=== PATIENT | female | born 1955 | race American Indian/Alaskan Native ===

== ENCOUNTER 2017-08-19 21:32 | Observation (INO) | payer OTHER ==
[2017-08-19 22:05] LABS: BASO # 0.1 K/uL (0.0-0.2); BASO % 0.7 % (0.0-2.0); EOS # 0.1 K/uL (0.0-0.7); EOS % 0.9 % (0.0-4.0); HEMATOCRIT 40.6 % (34.0-47.0); LYMPH # 3.8 K/uL (1.0-4.3); LYMPH % 45.4 % (20.0-40.0); MEAN CELL VOLUME 84.1 fL (81.0-99.0); MEAN CORPUSCULAR HEMOGLOBIN 28.1 pg (27.0-31.0); MEAN CORPUSCULAR HGB CONC 33.4 g/dL (33.0-37.0); MEAN PLATELET VOLUME 8.7 fL (7.2-11.7); MONO # 0.7 K/uL (0.0-0.8); MONO % 7.8 % (0.0-10.0); NRBC % 0.1 % (0.0-2.0); RED CELL DISTRIBUTION WIDTH 13.3 % (11.5-14.5); WHITE BLOOD COUNT 8.4 K/uL (4.8-10.8)
[2017-08-19 22:18] LABS: ALB/GLOB RATIO 1.5 (1.0-2.1); ALKALINE PHOSPHATASE 157 U/L (38-126); ALT/SGPT 33 U/L (9-52); AST/SGOT 22 U/L (14-36); BILIRUBIN,TOTAL 2.6 mg/dL (0.2-1.3); BLOOD UREA NITROGEN 13 mg/dL (7-17); CALCIUM 9.1 mg/dl (8.6-10.4); CARBON DIOXIDE 24 mmol/L (22-30); CHLORIDE 96 mmol/L (98-107); GFR AFRICAN-AMERICAN > 60; GLUCOSE,RANDOM 231 mg/dL (65-105); POTASSIUM 3.1 mmol/L (3.6-5.2); SODIUM 132 mmol/L (132-148)
[2017-08-19] MEDS ORDERED: Magnesium Sulfate 1 gm in D5W 1 GM/100 ML BAG IVPB ONE ×2 (23:01→23:32)
[2017-08-19] MEDS: Magnesium Sulfate 1 gm in D5W 1 GM/100 ML BAG IVPB SCH ×2 (23:05→23:35)
--- NOTE | 2017-08-19 23:13 | C.PDOC ---
History Of Present Illness 62 year old female presents to the ER with a complaint of abdominal pain, nausea , and vomiting that began earlier today. Denies fever or chills. Patient was seen and discharged from [facility] on 08/15/17 with abdominal pain, she had a CT abd/ pel that showed diverticulosis of the sigmoid colon without evidence of -itis and a US of the RUQ that showed hepatic steatosis. Patient returned to [facility] on 08/17/17 with nausea, vomiting, and diarrhea, she was admitted to their observation unit for 24 hours where she received zofran, morphine, insulin, and was discharged with improvement. Patient states she feels worse now and now has bilious vomiting. Patient has a Hx of HTN, diabetes, high cholesterol, and had an upper endoscopy years ago that was negative. She has a surgical Hx of hysterectomy and no known allergies. Chief Complaint (Nursing): GI Problem History Per: Patient History/Exam Limitations: no limitations Onset/Duration Of Symptoms: Hrs Current Symptoms Are (Timing): Still Present Severity: Moderate Pain Scale Rating Of: 5 Location Of Pain/Discomfort: Diffuse Radiation Of Pain To:: None Quality Of Discomfort: Unable To Describe Associated Symptoms: Nausea, Vomiting. denies: Fever, Chills, Diarrhea, Loss Of Appetite, Back Pain, Chest Pain Exacerbating Factors: None. denies: Cough Alleviating Factors: None Recent travel outside of the [place]: No Abnormal Vaginal Bleeding: No Past Medical History Reviewed: Historical Data, Nursing Documentation, Vital Signs Vital Signs: Last Vital Signs Temp 98.5 F 08/20/17 03:10 Pulse 70 08/20/17 03:10 Resp 20 08/20/17 03:10 BP 165/92 H 08/20/17 03:10 Pulse Ox 95 08/20/17 03:10 - Medical History PMH: HTN, Hypercholesterolemia, Pancreatitis Family History: States: Unknown Family Hx - Social History Hx Alcohol Use: No Hx Substance Use: No Review Of Systems Constitutional: Negative for: Fever, Chills Eyes: Negative for: Pain ENT: Negative for: Ear Pain Cardiovascular: Negative for: Chest Pain, Palpitations, Paroxysmal Noc. Dyspnea Respiratory: Negative for: Cough, Shortness of Breath, SOB with Excertion, Pleuritic Pain Gastrointestinal: Positive for: Nausea, Vomiting, Abdominal Pain Genitourinary: Negative for: Dysuria, Hematuria Musculoskeletal: Negative for: Neck Pain Neurological: Negative for: Weakness Psych: Negative for: Anxiety Physical Exam - Physical Exam Appears: Non-toxic, In Acute Distress Skin: Normal Color, Warm, Dry Head: Atraumatic, Normacephalic Eye(s): bilateral: Normal Inspection Oral Mucosa: Moist Tongue: Normal Appearing Lips: Normal Appearing Teeth: Normal Dentition Gingiva: Normal Appearing Neck: Normal, Supple Chest: Symmetrical, No Tenderness Cardiovascular: Rhythm Regular Respiratory: Normal Breath Sounds, No Rales, No Rhonchi, No Wheezing Gastrointestinal/Abdominal: Normal Exam, Soft, Tenderness (Mild), No Organomegaly, No Distention, No Guarding, No Rebound Back: Normal Inspection Extremity: Normal ROM Neurological/Psych: Oriented x3, Normal Speech ED Course And Treatment - Laboratory Results Result Diagrams: 08/19/17 22:00 08/19/17 22:00 ECG: Interpreted By Me, Viewed By Me ECG Rhythm: Sinus Rhythm ECG Interpretation: Normal Interpretation Of ECG: MA: 128, QRS: 74, QT: 394, QTc: 422. No ischemic changes. Rate From EC O2 Sat by Pulse Oximetry: 97 (Room air) Pulse Ox Interpretation: Normal Medical Decision Making Medical Decision Making: Plan: * EKG * UDS * CXR * Upreg * UA * Pepcid * Trop I * Lipase * Toradol * Zofran * Abdominal X-ray CBC within normal limits, potassium low at 3.1, will treat with magnesium sulfate 2 grams and potassium chloride po. BNP 246, trop I negative. On reevaluation, patient is still actively vomiting and complaining of pain, will give 4 more of zofran, protonix, and GI cocktail. Patient reports improvement of pain after morphine. pt received multiple doses of antiemetics with only intermittent relief. Case discussed with Dr. Lewis, who is covering for Dr. Schneider, agrees to accept patient for admission. Disposition Doctor Will See Patient In The: Hospital Counseled Patient/Family Regarding: Diagnosis - Disposition Disposition: HOSPITALIZED Disposition Time: 03:00 Condition: FAIR - Clinical Impression Clinical Impression: Nausea & vomiting - Scribe Statement The provider has reviewed the documentation as recorded by the Scriblidia Arboleda All medical record entries made by the Scribe were at my direction and personally dictated by me. I have reviewed the chart and agree that the record accurately reflects my personal performance of the history, physical exam, medical decision making, and the department course for this patient. I have also personally directed, reviewed, and agree with the discharge instructions and disposition.
[2017-08-19] MEDS ORDERED: Morphine 4 MG/ML VIAL IV ONE (23:28)
[2017-08-19] MEDS ORDERED: Morphine 4 MG/ML VIAL ONE (23:31)
[2017-08-20 00:53] LABS: RBC URINE 1 /hpf (0-3); URINE BILIRUBIN NEGATIVE (NEGATIVE); URINE BLOOD 1+ (NEGATIVE); URINE COLOR Yellow (YELLOW); URINE GLUCOSE (UA) 3+ mg/dL (Normal); URINE KETONE 2+ mg/dL (NEGATIVE); URINE LEUKOCYTE ESTERASE NEG Leu/uL (Negative); URINE PROTEIN NEGATIVE (NEGATIVE); URINE UROBILINOGEN NORMAL mg/dL (0.2-1.0); WBC URINE 1 /hpf (0-5)
[2017-08-20] MEDS ORDERED: Labetalol 25mg/5ml Syringe IVP STA (01:24)
[2017-08-20] MEDS: Levothyroxine 50 MCG TAB PO SCH (06:13)
[2017-08-20] MEDS: (Novolog) Insulin Aspart, Recombinant 100 u/ml 10 ml vial SC SCH ×4 (08:30→21:48)
--- NOTE | 2017-08-20 09:03 | RAD ---
HISTORY: abd pain COMPARISON: No prior. TECHNIQUE: Chest PA and lateral FINDINGS: LUNGS: No active pulmonary disease. PLEURA: No significant pleural effusion identified. No pneumothorax apparent. CARDIOVASCULAR: Normal. OSSEOUS STRUCTURES: No significant abnormalities. VISUALIZED UPPER ABDOMEN: Normal. OTHER FINDINGS: None. IMPRESSION: No active disease.
--- NOTE | 2017-08-20 09:05 | RAD ---
HISTORY: abd pain COMPARISON: No prior. FINDINGS: BOWEL: No evidence of bowel obstruction. Mild retained feces. No hepatic or splenic enlargement. No masses or abnormal intra-abdominal calcifications. BONES: Normal. OTHER FINDINGS: None. IMPRESSION: No evidence of bowel obstruction.
[2017-08-20] MEDS ORDERED: Home Med 1 UNIT (Fenofibrate,Micronized [Fenofibrate] 134 MG) PO SCH (10:00)
[2017-08-20] MEDS ORDERED: POTASSIUM CHLORIDE 20 MEQ PO SCH (10:00)
[2017-08-20] MEDS: Enoxaparin 40 mg Syringe SC SCH (10:51)
[2017-08-20] MEDS ORDERED: Bisacodyl 5mg EC Tab PO ONE (14:30)
--- NOTE | 2017-08-20 15:15 | CP.PCM.HP ---
History of Present Illness - History of Present Illness History of Present Illness: 62 year old female presents with complain of abdominal pain, nausea, and vomiting that began yesterday. Denies fever or chills. Patient was seen and discharged from [facility] on 08/15/17 with abdominal pain, she had a CT abd/pel that showed diverticulosis of the sigmoid colon without evidence of -itis and a US of the RUQ that showed hepatic steatosis. Patient returned to [facility] on 08/17/17 with nausea, vomiting, and diarrhea, she was admitted to their observation unit for 24 hours where she received zofran, morphine, insulin, and was discharged with improvement. Patient states she feels worse now and now has bilious vomiting. Patient has a Hx of HTN, diabetes, high cholesterol, and had an upper endoscopy years ago that was negative. She has a surgical Hx of hysterectomy and no known allergies. Present on Admission - Present on Admission Any Indicators Present on Admission: No History of DVT/PE: No History of Uncontrolled Diabetes: No Urinary Catheter: No Decubitus Ulcer Present: No Review of Systems - Review of Systems All systems: reviewed and no additional remarkable complaints except (See HPI rest negative) Past Patient History - Infectious Disease Hx of Infectious Diseases: None - Past Medical History & Family History Past Medical History?: Yes - Past Social History Smoking Status: Never Smoked - CARDIAC Hx Hypercholesterolemia: Yes Hx Hypertension: Yes - PULMONARY Hx Respiratory Disorders: No - NEUROLOGICAL Hx Neurological Disorder: No - HEENT Hx HEENT Problems: No - RENAL Hx Chronic Kidney Disease: No - ENDOCRINE/METABOLIC Hx Endocrine Disorders: Yes Hx Diabetes Mellitus Type 1: Yes Hx Hypothyroidism: Yes - HEMATOLOGICAL/ONCOLOGICAL Hx Blood Disorders: No - INTEGUMENTARY Hx Dermatological Problems: No - MUSCULOSKELETAL/RHEUMATOLOGICAL Hx Falls: No - GASTROINTESTINAL Hx Pancreatitis: Yes - GENITOURINARY/GYNECOLOGICAL Hx Genitourinary Disorders: No - PSYCHIATRIC Hx Substance Use: No - SURGICAL HISTORY Hx Surgeries: Yes Hx Hysterectomy: Yes - ANESTHESIA Hx Anesthesia: Yes Hx Anesthesia Reactions: No Meds Allergies/Adverse Reactions: Allergies Allergy/AdvReac Type Severity Reaction Status Date / Time No Known Allergies Allergy Verified 08/19/17 21:44 Physical Exam - Head Exam Head Exam: NORMAL INSPECTION - Eye Exam Eye Exam: Normal appearance - ENT Exam ENT Exam: Mucous Membranes Moist - Respiratory Exam Respiratory Exam: Clear to Auscultation Bilateral - Cardiovascular Exam Cardiovascular Exam: REGULAR RHYTHM, +S1, +S2 - GI/Abdominal Exam GI & Abdominal Exam: Normal Bowel Sounds, Soft - Extremities Exam Extremities exam: Positive for: normal inspection Results - Vital Signs Recent Vital Signs: Last Vital Signs Temp 98.6 F 08/20/17 08:27 Pulse 99 H 08/20/17 08:27 Resp 20 08/20/17 08:27 BP 154/95 H 08/20/17 10:51 Pulse Ox 97 08/20/17 08:27 - Labs Result Diagrams: 08/19/17 22:00 08/19/17 22:00 Labs: Laboratory Results - last 24 hr 08/19/17 08/19/17 08/19/17 22:00 22:00 22:00 WBC 8.4 RBC 4.83 Hgb 13.6 Hct 40.6 MCV 84.1 MCH 28.1 MCHC 33.4 RDW 13.3 Plt Count 374 MPV 8.7 Neut % (Auto) 45.2 L Lymph % (Auto) 45.4 H [place] % (Auto) 7.8 Eos % (Auto) 0.9 Baso % (Auto) 0.7 Neut # 3.8 Lymph # 3.8 [place] # 0.7 Eos # 0.1 Baso # 0.1 Sodium 132 Potassium 3.1 L Chloride 96 L Carbon Dioxide 24 Anion Gap 15 BUN 13 Creatinine 0.8 Est GFR ( Amer) > 60 Est GFR (Non-Af Amer) > 60 POC Glucose (mg/dL) 208 H Random Glucose 231 H Calcium 9.1 Total Bilirubin 2.6 H AST 22 ALT 33 Alkaline Phosphatase 157 H Troponin I < 0.0120 Total Protein 7.0 Albumin 4.2 Globulin 2.8 Albumin/Globulin Ratio 1.5 Lipase 163 Urine Color Urine Clarity Urine pH Ur Specific [place] Urine Protein Urine Glucose (UA) Urine Ketones Urine Blood Urine Nitrate Urine Bilirubin Urine Urobilinogen Ur Leukocyte Esterase Urine WBC (Auto) Urine RBC (Auto) Ur Squamous Epith Cells Urine HCG, Qual Urine Opiates Screen Urine Methadone Screen Ur Barbiturates Screen Ur Phencyclidine Scrn Ur Amphetamines Screen U Benzodiazepines Scrn U Oth Cocaine Metabols U Cannabinoids Screen 08/19/17 08/19/17 08/20/17 23:55 23:55 07:03 WBC RBC Hgb Hct MCV MCH MCHC RDW Plt Count MPV Neut % (Auto) Lymph % (Auto) [place] % (Auto) Eos % (Auto) Baso % (Auto) Neut # Lymph # [place] # Eos # Baso # Sodium Potassium Chloride Carbon Dioxide Anion Gap BUN Creatinine Est GFR ( Amer) Est GFR (Non-Af Amer) POC Glucose (mg/dL) 238 H Random Glucose Calcium Total Bilirubin AST ALT Alkaline Phosphatase Troponin I Total Protein Albumin Globulin Albumin/Globulin Ratio Lipase Urine Color Yellow Urine Clarity Clear Urine pH 5.0 Ur Specific [place] 1.020 Urine Protein Negative Urine Glucose (UA) 3+ H Urine Ketones 2+ H Urine Blood 1+ H Urine Nitrate Negative Urine Bilirubin Negative Urine Urobilinogen Normal Ur Leukocyte Esterase Neg Urine WBC (Auto) 1 Urine RBC (Auto) 1 Ur Squamous Epith Cells < 1 Urine HCG, Qual Negative Urine Opiates Screen No result Urine Methadone Screen Negative Ur Barbiturates Screen Negative Ur Phencyclidine Scrn Negative Ur Amphetamines Screen Negative U Benzodiazepines Scrn Negative U Oth Cocaine Metabols Negative U Cannabinoids Screen Positive H 08/20/17 11:07 WBC RBC Hgb Hct MCV MCH MCHC RDW Plt Count MPV Neut % (Auto) Lymph % (Auto) [place] % (Auto) Eos % (Auto) Baso % (Auto) Neut # Lymph # [place] # Eos # Baso # Sodium Potassium Chloride Carbon Dioxide Anion Gap BUN Creatinine Est GFR ( Amer) Est GFR (Non-Af Amer) POC Glucose (mg/dL) 215 H Random Glucose Calcium Total Bilirubin AST ALT Alkaline Phosphatase Troponin I Total Protein Albumin Globulin Albumin/Globulin Ratio Lipase Urine Color Urine Clarity Urine pH Ur Specific [place] Urine Protein Urine Glucose (UA) Urine Ketones Urine Blood Urine Nitrate Urine Bilirubin Urine Urobilinogen Ur Leukocyte Esterase Urine WBC (Auto) Urine RBC (Auto) Ur Squamous Epith Cells Urine HCG, Qual Urine Opiates Screen Urine Methadone Screen Ur Barbiturates Screen Ur Phencyclidine Scrn Ur Amphetamines Screen U Benzodiazepines Scrn U Oth Cocaine Metabols U Cannabinoids Screen Assessment & Plan (1) Gastroparesis Status: Acute (2) Nausea & vomiting Status: Acute (3) HTN (hypertension) Status: Acute (4) Diabetes mellitus Status: Acute - Assessment and Plan (Free Text) Assessment: Reglan GI consult Accucheck Insulin coverage Norvasc Start Metoprolol Protonic Zofran PRN DVT/GI prophalaxis
[2017-08-20] MEDS ORDERED: Magnesium Citrate Oral SOL (300 ml) PO ONE ×2 (20:00→21:30)
--- NOTE | 2017-08-20 23:14 | CARD ---
APPROVED REPORT EKG Measurement Heart [id number] <Conclusion> Normal sinus rhythm Normal ECG
[2017-08-21] MEDS: Levothyroxine 50 MCG TAB PO SCH (05:44)
--- NOTE | 2017-08-21 06:17 | CON ---
DATE: 08/20/[address] Quiñonez to . HISTORY OF PRESENT ILLNESS: I was called for a GI consultation by the admitting MD. The patient is seen and fully examined in the presence of her family for GI consultation on 08/20/2017. The entire chart is reviewed including but not limited to the most recent lab and radiology study results, current and the previous medication list, current and the previous medical events, allergy to medication list as well as all the available current and previous medical records. Case discussed with staff at length. This is a 62-year-old female, who was admitted to the hospital through the emergency room with a main complaint of severe abdominal pain, recurrent nausea and vomiting, persistent dyspepsia with recent change of bowel movement habit associated with some quite loose and sometimes watery fecal material with fresh blood on and off for the last 5 to 7 days, was seen in [facility] a week ago with the same complaint. Had CAT scan of the abdomen and pelvis, unclear official report, but claims that she had some diverticula. The patient's condition had been getting worse since, underwent endoscopic evaluation of the GI tract. The patient stated that she had colonoscopy several years ago over 12 to 14 years ago according to her statement. PAST MEDICAL HISTORY: Including but not limited to 1. Diabetes mellitus. 2. Hyperlipidemia. 3. Hypertension. 4. Peptic ulcer disease. 5. Status post hysterectomy. CURRENT MEDICATIONS: Medication list were reviewed. ALLERGIES TO MEDICATION: Unknown. FAMILY HISTORY: Noncontributory. SOCIAL HISTORY: Denied any recent history of excessive alcohol intake or cigarette smoking. REVIEW OF SYSTEMS: The patient denied any chest pain, chills, palpitation or significant history of shortness of breath. LABORATORY DATA: After being admitted to the hospital,initial blood workup showed normal CBC with low potassium of 3.1, increased blood glucose level to 231. PHYSICAL EXAMINATION: GENERAL: A 62-year-old female, appears to be awake, alert, oriented. VITAL SIGNS: Afebrile at the time she was seen by me with pulse of 74, respiratory 20 to 22, blood pressure 160/82. HEENT: Showed pale, dry oral mucous membrane. Nonicteric sclerae. LUNGS: Few scattered crepitation. Decreased air entry at bases. HEART: Positive S1 and S2. ABDOMEN: Soft with generalized tenderness present in the mid epigastric area and mildly in the left lower quadrant area. No mass or organomegaly. No rebound tenderness or guarding. RECTAL: Positive tone. Vault is empty. EXTREMITIES: Without significant clubbing, edema or cyanosis. NEUROLOGIC: No reported new neurological deficits, sensory or motor. No focal deficits. Peripheral pulse are present bilaterally, but weak. IMPRESSION: 1. Re-exacerbation of peptic ulcer disease, to rule out gastric versus duodenal ulcer with recurrent episode of nausea, dyspepsia and vomiting. 2. To rule out an acute case of pancreatitis. 3. Diarrhea of unclear etiology, possibility of diverticulosis with possible early stage of diverticulitis was raised versus an early stage of pseudomembranous colitis. 4. Known history of hypertension, hyperlipidemia, diabetes mellitus, to rule out diabetic gastroparesis, to rule out diabetic diarrhea. SUGGESTIONS: 1. I agree with your plan. 2. Rehydration. 3. Reglan IV. 4. . 5. Guaiac all the stool daily x3. 6. Cancer marker. 7. Serum lipase, amylase level. 8. Sectional abdominal and pelvic CAT scan. 9. Further recommendation to follow and endoscopic evaluation of the GI tract to be kept in mind. 10. Further recommendation to follow. Thank you for letting me participate in your patient's case management. Donovan Quiñonez MD
[2017-08-21] MEDS: (Novolog) Insulin Aspart, Recombinant 100 u/ml 10 ml vial SC SCH ×4 (08:01→21:15)
[2017-08-21 08:05] LABS: BASO # 0.1 K/uL (0.0-0.2); EOS # 0.1 K/uL (0.0-0.7); EOS % 0.8 % (0.0-4.0); HEMATOCRIT 39.4 % (34.0-47.0); LYMPH # 3.4 K/uL (1.0-4.3); LYMPH % 49.9 % (20.0-40.0); MEAN CELL VOLUME 83.2 fL (81.0-99.0); MEAN CORPUSCULAR HEMOGLOBIN 29.3 pg (27.0-31.0); MEAN CORPUSCULAR HGB CONC 35.3 g/dL (33.0-37.0); MEAN PLATELET VOLUME 8.8 fL (7.2-11.7); MONO # 0.6 K/uL (0.0-0.8); MONO % 9.4 % (0.0-10.0); WHITE BLOOD COUNT 6.7 K/uL (4.8-10.8)
[2017-08-21 08:33] LABS: BLOOD UREA NITROGEN 16 mg/dL (7-17); CARBON DIOXIDE 28 mmol/L (22-30); CHLORIDE 97 mmol/L (98-107); GFR AFRICAN-AMERICAN > 60; GLUCOSE,RANDOM 226 mg/dL (65-105); POTASSIUM 3.5 mmol/L (3.6-5.2); SODIUM 132 mmol/L (132-148)
[2017-08-21] MEDS: Potassium Chloride 20 mEq ER Tab PO SCH (09:43)
[2017-08-21] MEDS: Enoxaparin 40 mg Syringe SC SCH (09:44)
[2017-08-21] MEDS: Metoprolol Succinate 25 mg XL Tab PO SCH (09:45)
[2017-08-21] MEDS ORDERED: Propofol 10 mg/ml Inj (20 ML) ONE (11:42)
[2017-08-21] MEDS ORDERED: Peg-Electrolyte Oral Soln 4L (Golytely) PO ONE (13:15)
[2017-08-21 14:07] LABS: CARCINOEMBRYONIC ANTIGEN 4.6 ng/mL (0-3.0)
[2017-08-21 14:10] LABS: CA 19-9 < 1.4 U/mL (0-37)
[2017-08-21] MEDS ORDERED: Bisacodyl 5mg EC Tab PO ONE (17:00)
--- NOTE | 2017-08-21 18:42 | CP.PCM.PN ---
Subjective - Date & Time of Evaluation Date of Evaluation: 08/21/17 Time of Evaluation: 18:42 - Subjective Subjective: Patient seen and examined No eventsa overnight s/p EGD Objective - Vital Signs/Intake and Output Vital Signs (last 24 hours): Temp Pulse Resp BP Pulse Ox 98.6 F 74 20 114/71 95 08/21/17 16:00 08/21/17 16:00 08/21/17 16:00 08/21/17 16:00 08/21/17 16:00 Intake and Output: 08/21/17 08/21/17 06:59 18:59 Intake Total 350 Balance 350 - Medications Medications: Current Medications Acetaminophen (Tylenol 325mg Tab) 650 mg PO Q6 PRN PRN Reason: pain Amlodipine Besylate (Norvasc) 10 mg PO DAILY [facility] Last Admin: 08/21/17 09:44 Dose: Not Given Enoxaparin Sodium (Lovenox) 40 mg SC DAILY [facility] Last Admin: 08/21/17 09:44 Dose: Not Given Fenofibrate (Tricor) 145 mg PO DAILY [facility] Last Admin: 08/21/17 09:45 Dose: Not Given Furosemide (Lasix) 40 mg PO DAILY [facility] Last Admin: 08/21/17 09:44 Dose: Not Given Insulin Aspart (Novolog) 0 unit SC ACHS [facility] PRN Reason: Protocol Last Admin: 08/21/17 11:30 Dose: Not Given Levothyroxine Sodium (Synthroid) 50 mcg PO DAILY@0630 [facility] Last Admin: 08/21/17 05:44 Dose: Not Given Metoclopramide HCl (Reglan) 10 mg IVP Q6 [facility] Last Admin: 08/21/17 12:00 Dose: Not Given Metoprolol Succinate (Toprol Xl) 25 mg PO DAILY [facility] Last Admin: 08/21/17 09:45 Dose: Not Given Ondansetron HCl (Zofran Inj) 8 mg IVP Q4H PRN PRN Reason: nausea and vomiting Last Admin: 08/20/17 10:51 Dose: 8 mg Pantoprazole Sodium (Protonix Inj) 40 mg IVP DAILY [facility] Last Admin: 08/21/17 09:50 Dose: 40 mg Pneumococcal Polyvalent Vaccine (Pneumovax 23 Vaccine) 0.5 ml IM .ONCE ONE Stop: 08/22/17 10:01 Potassium Chloride (K-Dur 20 Meq Er Tab) 20 meq PO DAILY [facility] Last Admin: 08/21/17 09:43 Dose: Not Given Rosuvastatin Calcium (Crestor) 40 mg PO HS [facility] Last Admin: 08/20/17 21:47 Dose: 40 mg Sucralfate (Carafate Oral Susp) 1 gm PO ACBHS [facility] - Labs Labs: 08/21/17 07:53 08/21/17 07:53 - Head Exam Head Exam: NORMAL INSPECTION - Eye Exam Eye Exam: Normal appearance - ENT Exam ENT Exam: Mucous Membranes Moist - Respiratory Exam Respiratory Exam: Clear to Ausculation Bilateral - Cardiovascular Exam Cardiovascular Exam: REGULAR RHYTHM, +S1, +S2 - GI/Abdominal Exam GI & Abdominal Exam: Soft, Normal Bowel Sounds - Neurological Exam Neurological Exam: Alert, Oriented x3 Assessment and Plan (1) Gastroparesis Status: Acute (2) Nausea & vomiting Status: Acute (3) HTN (hypertension) Status: Acute (4) Diabetes mellitus Status: Acute (5) Gastric ulcer Status: Acute - Assessment and Plan (Free Text) Plan: Reglan Accucheck Insulin coverage Norvasc Metoprolol Protonix Zofran PRN For colonoscopy in am DVT/GI prophalaxis
[2017-08-21] MEDS: Sucralfate 1 gm/10 ml Oral Susp UD PO SCH (21:13)
[2017-08-22] MEDS: Levothyroxine 50 MCG TAB PO SCH (06:48)
[2017-08-22] MEDS ORDERED: Propofol 10 mg/ml Inj (20 ML) ONE (07:46)
[2017-08-22] MEDS ORDERED: Lidocaine Hydrochloride 5 ML INJ ONE (07:47)
[2017-08-22] MEDS: Sucralfate 1 gm/10 ml Oral Susp UD PO SCH (08:03)
[2017-08-22] MEDS: (Novolog) Insulin Aspart, Recombinant 100 u/ml 10 ml vial SC SCH ×2 (08:03→11:30)
[2017-08-22] MEDS ORDERED: Belladonna-Phenobarbital PO ONE (08:30)
[2017-08-22] MEDS ORDERED: Pneumococcal 23-Valent Vaccine IM ONE ×2 (10:00→14:30)
[2017-08-22] MEDS: Potassium Chloride 20 mEq ER Tab PO SCH (10:01)
[2017-08-22] MEDS: Enoxaparin 40 mg Syringe SC SCH (10:02)
[2017-08-22] MEDS: Metoprolol Succinate 25 mg XL Tab PO SCH (10:03)
[2017-08-22] MEDS ORDERED: Influenza Vaccine 60 mcg/0.5 mL SYR (4YR UP) IM ONE ×2 (10:05→14:30)
[2017-08-22] MEDS: Vancomycin 125 MG/5 ML SOLN (ORAL/RECTAL) PO SCH ×2 (12:02→14:50)
[2017-08-22 12:19] VITALS: RESP 20; O2SAT 96
--- NOTE | 2017-08-22 15:18 | CP.PCM.DIS ---
Provider - Provider Date of Admission: 08/20/17 00:29 Attending physician: Britt Lewis MD Diagnosis - Discharge Diagnosis (1) Gastroparesis Status: Acute (2) Nausea & vomiting Status: Acute (3) HTN (hypertension) Status: Acute (4) Diabetes mellitus Status: Acute (5) Gastric ulcer Status: Acute Hospital Course - Lab Results Lab Results: Most Recent Lab Values WBC 6.7 K/uL (4.8-10.8) 08/21/17 07:53 RBC 4.74 Mil/uL (3.80-5.20) 08/21/17 07:53 Hgb 13.9 g/dL (11.0-16.0) 08/21/17 07:53 Hct 39.4 % (34.0-47.0) 08/21/17 07:53 MCV 83.2 fL (81.0-99.0) 08/21/17 07:53 MCH 29.3 pg (27.0-31.0) 08/21/17 07:53 MCHC 35.3 g/dL (33.0-37.0) 08/21/17 07:53 RDW 13.0 % (11.5-14.5) 08/21/17 07:53 Plt Count 358 K/uL (130-400) 08/21/17 07:53 MPV 8.8 fL (7.2-11.7) 08/21/17 07:53 Neut % (Auto) 38.9 % (50.0-75.0) L 08/21/17 07:53 Lymph % (Auto) 49.9 % (20.0-40.0) H 08/21/17 07:53 [place] % (Auto) 9.4 % (0.0-10.0) 08/21/17 07:53 Eos % (Auto) 0.8 % (0.0-4.0) 08/21/17 07:53 Baso % (Auto) 1.0 % (0.0-2.0) 08/21/17 07:53 Neut # 2.6 K/uL (1.8-7.0) 08/21/17 07:53 Lymph # 3.4 K/uL (1.0-4.3) 08/21/17 07:53 [place] # 0.6 K/uL (0.0-0.8) 08/21/17 07:53 Eos # 0.1 K/uL (0.0-0.7) 08/21/17 07:53 Baso # 0.1 K/uL (0.0-0.2) 08/21/17 07:53 Sodium 132 mmol/L (132-148) 08/21/17 07:53 Potassium 3.5 mmol/L (3.6-5.2) L 08/21/17 07:53 Chloride 97 mmol/L (98-107) L 08/21/17 07:53 Carbon Dioxide 28 mmol/L (22-30) 08/21/17 07:53 Anion Gap 11 (10-20) 08/21/17 07:53 BUN 16 mg/dL (7-17) 08/21/17 07:53 Creatinine 0.9 mg/dL (0.7-1.2) 08/21/17 07:53 Est GFR ( Amer) > 60 08/21/17 07:53 Est GFR (Non-Af Amer) > 60 08/21/17 07:53 POC Glucose (mg/dL) 223 mg/dL (65-110) H 08/22/17 11:29 Random Glucose 226 mg/dL (65-105) H 08/21/17 07:53 Calcium 9.0 mg/dl (8.6-10.4) 08/21/17 07:53 Total Bilirubin 2.6 mg/dL (0.2-1.3) H 08/19/17 22:00 AST 22 U/L (14-36) 08/19/17 22:00 ALT 33 U/L (9-52) 08/19/17 22:00 Alkaline Phosphatase 157 U/L (38-126) H 08/19/17 22:00 Troponin I < 0.0120 ng/mL (0.00-0.120) 08/19/17 22:00 Total Protein 7.0 g/dL (6.3-8.3) 08/19/17 22:00 Albumin 4.2 g/dL (3.5-5.0) 08/19/17 22:00 Globulin 2.8 gm/dL (2.2-3.9) 08/19/17 22:00 Albumin/Globulin Ratio 1.5 (1.0-2.1) 08/19/17 22:00 Lipase 163 U/L (23-300) 08/19/17 22:00 Carcinoembryonic Ag 4.6 ng/mL (0-3.0) H 08/21/17 07:53 CA 19-9 Antigen < 1.4 U/mL (0-37) 08/21/17 07:53 CA 125 Antigen 11.5 U/mL (0-35) 08/21/17 07:53 Urine Color Yellow (YELLOW) 08/19/17 23:55 Urine Clarity Clear (Clear) 08/19/17 23:55 Urine pH 5.0 (5.0-8.0) 08/19/17 23:55 Ur Specific [place] 1.020 (1.003-1.030) 08/19/17 23:55 Urine Protein Negative mg/dL (NEGATIVE) 08/19/17 23:55 Urine Glucose (UA) 3+ mg/dL (Normal) H 08/19/17 23:55 Urine Ketones 2+ mg/dL (NEGATIVE) H 08/19/17 23:55 Urine Blood 1+ (NEGATIVE) H 08/19/17 23:55 Urine Nitrate Negative (NEGATIVE) 08/19/17 23:55 Urine Bilirubin Negative (NEGATIVE) 08/19/17 23:55 Urine Urobilinogen Normal mg/dL (0.2-1.0) 08/19/17 23:55 Ur Leukocyte Esterase Neg [place]/uL (Negative) 08/19/17 23:55 Urine WBC (Auto) 1 /hpf (0-5) 08/19/17 23:55 Urine RBC (Auto) 1 /hpf (0-3) 08/19/17 23:55 Ur Squamous Epith Cells < 1 /hpf (0-5) 08/19/17 23:55 Urine HCG, Qual Negative (NEGATIVE) 08/19/17 23:55 Urine Opiates Screen No result (NEGATIVE) 08/19/17 23:55 Urine Methadone Screen Negative (NEGATIVE) 08/19/17 23:55 Ur Barbiturates Screen Negative (NEGATIVE) 08/19/17 23:55 Ur Phencyclidine Scrn Negative (NEGATIVE) 08/19/17 23:55 Ur Amphetamines Screen Negative (NEGATIVE) 08/19/17 23:55 U Benzodiazepines Scrn Negative (NEGATIVE) 08/19/17 23:55 U Oth Cocaine Metabols Negative (NEGATIVE) 08/19/17 23:55 U Cannabinoids Screen Positive (NEGATIVE) H 08/19/17 23:55 Discharge Exam - Head Exam Head Exam: NORMAL INSPECTION Discharge Plan - Discharge Medications Prescriptions: Hydrocortisone/Pramoxine [Analpram Hc 2.5%-1% Crm Single] 4 gm RC BID #1 cream.appl Sucralfate [Carafate Oral Susp] 1 gm PO ACBHS 7 Days udc Vancomycin [Vancocin (ORAL OR RECTAL USE)] 125 mg PO QID 7 Days soln - Follow Up Plan Condition: FAIR Disposition: HOME/ ROUTINE Additional Instructions: PLEASE FOLLOW UP WITH PMD IN ONE WEEK PLEASE FOLLOW UP WITH DR. RAMOS IN THE OFFICE IN 5 WEEKS VANCOMYCIN 125 MG PO QID FOR 1 WEEK ANALPRAM HC CREAM 2.5% APPLY EXTERNALLY BID FOR 10 WEEKS HIGH FIBER DIET RETURN TO ER IF ANY WORSENING SYMPTOMS Referrals: Britt Lewis MD [Staff Provider] - Donovan Ramos [Staff Provider] -
--- NOTE | 2017-08-22 15:19 | CP.PCM.PN ---
Subjective - Date & Time of Evaluation Date of Evaluation: 08/22/17 Time of Evaluation: 15:19 - Subjective Subjective: PT SEEN AND EXAMINED TODAY, PT DENIES ANY ABDOMINAL PAIN, NAUSEA, VOMITING , DIARRHEA. Objective - Vital Signs/Intake and Output Vital Signs (last 24 hours): Temp Pulse Resp BP Pulse Ox 98.5 F 58 L 20 104/63 96 08/22/17 12:19 08/22/17 12:19 08/22/17 12:19 08/22/17 12:19 08/22/17 12:19 Intake and Output: 08/22/17 08/22/17 06:59 18:59 Intake Total 700 Balance 700 - Medications Medications: Current Medications Acetaminophen (Tylenol 325mg Tab) 650 mg PO Q6 PRN PRN Reason: pain Amlodipine Besylate (Norvasc) 10 mg PO DAILY [facility] Last Admin: 08/22/17 11:29 Dose: 10 mg Enoxaparin Sodium (Lovenox) 40 mg SC DAILY [facility] Last Admin: 08/22/17 10:02 Dose: 40 mg Fenofibrate (Tricor) 145 mg PO DAILY [facility] Last Admin: 08/22/17 09:58 Dose: 145 mg Furosemide (Lasix) 40 mg PO DAILY [facility] Last Admin: 08/22/17 09:58 Dose: 40 mg Insulin Aspart (Novolog) 0 unit SC ACHS [facility] PRN Reason: Protocol Last Admin: 08/22/17 11:30 Dose: 3 unit Levothyroxine Sodium (Synthroid) 50 mcg PO DAILY@0630 [facility] Last Admin: 08/22/17 06:48 Dose: Not Given Metoclopramide HCl (Reglan) 10 mg IVP Q6 [facility] Last Admin: 08/22/17 11:30 Dose: 10 mg Metoprolol Succinate (Toprol Xl) 25 mg PO DAILY [facility] Last Admin: 08/22/17 10:03 Dose: 25 mg Ondansetron HCl (Zofran Inj) 8 mg IVP Q4H PRN PRN Reason: nausea and vomiting Last Admin: 08/20/17 10:51 Dose: 8 mg Pantoprazole Sodium (Protonix Inj) 40 mg IVP DAILY [facility] Last Admin: 08/22/17 11:30 Dose: 40 mg Potassium Chloride (K-Dur 20 Meq Er Tab) 20 meq PO DAILY [facility] Last Admin: 08/22/17 10:01 Dose: 20 meq Rosuvastatin Calcium (Crestor) 40 mg PO HS [facility] Last Admin: 08/21/17 21:13 Dose: 40 mg Sucralfate (Carafate Oral Susp) 1 gm PO ACBHS [facility] Last Admin: 08/22/17 08:03 Dose: Not Given Vancomycin HCl (Vancocin (Oral Or Rectal Use)) 125 mg PO QID [facility] Last Admin: 08/22/17 14:50 Dose: 125 mg - Labs Labs: 08/21/17 07:53 08/21/17 07:53 Assessment and Plan - Assessment and Plan (Free Text) Plan: 62 Y/O FEMALE WITH PMHX HTN, DM ADMITTED FOR EPIGASTRIC PAIN, NAUSEA, VOMITING, HYPOKALEMIA PT CLEARED FOR DISCHARGE PER DR ATKINS AND DR SCALES FOLLOW UP WITH PMD IN ONE WEEK PLEASE FOLLOW UP WITH DR. SCALES IN THE OFFICE IN 5 WEEK VANCOMYCIN 125 MG PO QID FOR 1 WEEK ANALPRAM HC CREAM 2.5% APPLY EXTERNALLY BID FOR 10 WEEKS HIGH FIBER DIET RETURN TO ER IF ANY WORSENING SYMPTOMS
[2017-08-22 16:22] VITALS: BP 107/73; PULSE 76; TEMP 98.3
== END 2017-08-22 16:55 | disposition home or self-care (01) ==
LOC: C.ER 21:32 → C.9E 08-20 00:29 → C.3T 08-20 00:29
PROVIDERS: ADMIT Internal Medicine Critical Care Medicine; ATTEND Internal Medicine Critical Care Medicine
DX: E10.43 Type 1 diabetes mellitus with diabetic autonomic (poly)neuropathy (principal); K31.84 Gastroparesis; I10 Essential (primary) hypertension; K25.9 Gastric ulcer, unspecified as acute or chronic, without hemorrhage or perforation; K64.8 Other hemorrhoids; K57.90 Diverticulosis of intestine, part unspecified, without perforation or abscess without bleeding
CPT/HCPCS: 36415; 43239; 45380; 71020; 74020; 80048; 80053; 80324; 80345; 80346; 80349; 80353; 80358; 80361; 81001; 82378; 82948; 83690; 83992; 84484; 84703; 85025; 86301; 86304; 88305; 88342; 90471; 90674; 90732; 93005; 96361; 96365; 96375; 97116; 97162; 99285; C9113; G0378; G8978; G8979; J1650; J1885; J2270; J2405; J2765; J3475; J3480